=== PATIENT | female | born 1960 | race Caucasian/White ===

== ENCOUNTER → 2017-04-30 | Outpatient (REF) ==
[~2017-04-30] MED LIST: DOXY-1 PO; VITAMINS
[2017-04-30 09:33] LABS: LDL CHOLESTEROL 85 mg/dl
== END ==
DX: Z02.9 Encounter for administrative examinations, unspecified (principal)

== ENCOUNTER 2018-03-16 16:03 | Emergency (ER) | payer OTHER ==
[2018-03-16 16:10] VITALS: BP 150/73
--- NOTE | 2018-03-16 16:25 | ER Report ---
History and Physical Time Seen By MD: 16:25 Hx. of Stated Complaint: michel nose HPI/ROS small abscess to left side of nose. worsening for one week. subjective fever and erythema and pain to area. Remainder of the 14 system rev: Yes Allergies: Coded Allergies: No Known Drug Allergies (Unverified , 03/16/18) Home Meds Discontinued Reported Medications [Vitamins] No Conflict Check 03/04/12 Discontinued Scripts Doxycycline Hyclate (VIBRAMYCIN) 100 Mg Capsule, 100 MG PO BID, #42 CAPSULE 0 Refills Prov:BLADIMIR WALSH MD 04/18/16 Reviewed Nurses Notes: Yes Old Medical Records Reviewed: Yes Hx Smoking: No Hx Substance Use Disorder: No Hx Alcohol Use: No Constitutional Vital Sign - Last 24 Hours 03/16/18 16:10 Temp 99.3 Pulse 82 Resp 12 B/P (MAP) 150/73 Pulse Ox 94 O2 Delivery Room Air Physical Exam General Appearance: The patient is alert, has no immediate need for airway protection and no current signs of toxicity. Skin: small abscess to left side of nose with surrounding erythema. No fluctuance. Medical Decision Making ED Course/Re-evaluation ED Course uncomplicated abscess to left side of nose. I&D performed. Given Bactrim, keflex, and mupriocin oint. Will return to the ED if worse. Procedure 18 gauge needle used to deroof small abscess. Minimal drainage. abx given Decision to Disposition Date: Mar 16, 2018 Decision to Disposition Time: 17:52 Depart Departure Latest Vital Signs Vital Signs Date Time Temp Pulse Resp B/P (MAP) Pulse Ox O2 Delivery O2 Flow Rate FiO2 03/16/18 16:10 99.3 82 12 150/73 94 Room Air Impression: Primary Impression: Abscess Condition: Improved Disposition: HOME OR SELF-CARE Referrals: NOY [facility] (PCP) New Scripts Sulfamethoxazole/Trimet 800-160 Mg Tab (BACTRIM DS TABLET) 1 Each Tablet 1 TAB PO Q12H for 10 Days, #20 TAB Prov: YOVANNY DAVIES MD 03/16/18 Cephalexin Monohydrate (CEPHALEXIN) 500 Mg Cap 500 MG PO BID for 10 Days, #20 CAP 0 Refills Prov: YOVANNY DAVIES MD 03/16/18 Patient Instructions: Abscess (ED) YOVANNY DAVIES MD Mar 16, 2018 16:25
[2018-03-16] MEDS ORDERED: CEPHALEXIN MONO 500 MG CAP PO ONE (17:35)
[2018-03-16] MEDS ORDERED: MUPIROCIN 2% OINT 22 GM TUBE TP ONE (17:35)
[2018-03-16] MEDS ORDERED: TRIMETH/SULFA DS 160-800MG TAB PO ONE (17:35)
[2018-03-16] MEDS ORDERED: SULF-198 PO (17:53)
[2018-03-16] MEDS ORDERED: CEPH500C24 PO (17:53)
== END 2018-03-16 18:12 | disposition home or self-care (01) ==
LOC: ER 16:31
DX: J34.0 Abscess, furuncle and carbuncle of nose (principal)
CPT/HCPCS: 99283

== ENCOUNTER → 2018-07-17 | Outpatient (REF) ==
[~2018-07-17] MED LIST changes: +CEPH500C24 PO; +SULF-198 PO
[2018-07-17 07:02] LABS: LDL CHOLESTEROL 86 mg/dl
== END ==
DX: Z02.9 Encounter for administrative examinations, unspecified (principal)